=== PATIENT | male | born 1970 | race Caucasian/White ===

== ENCOUNTER → 2017-10-18 | Outpatient (REF) | payer OTHER | LOC: ZZSENDIN 13:04 | PROVIDERS: ATTEND Physician Assistant Medical | DX: R10.817 Generalized abdominal tenderness (principal) | CPT/HCPCS: 82150; 83690 ==

== ENCOUNTER → 2017-10-19 | Outpatient (CLI) | payer OTHER ==
--- NOTE | 2017-10-19 17:31 | RADIOLOGY IMAGING REPORT ---
FACILITY: [facility] [place] PATIENT NAME: Lucian Blair : 1970 MR: [id number] V: [id number] EXAM DATE: ORDERING PHYSICIAN: RUBIA KAM TECHNOLOGIST: Location: [facility] - [place], [place] Patient: Lucian Blair : 1970 Visit/Account:[id number] Date of Sevice: 10/19/2017 GALLBLADDER HISTORY: Right upper quadrant pain COMPARISON: None. FINDINGS: Gallbladder: Gallbladder wall is borderline thickened at 2.9 mm. There is no demonstration of gallst ones or positive Doran sign Liver: Increased echogenicity throughout liver which can be seen with fatty infiltration or other inf iltrative process Common duct: Normal, 3.6 mm diameter. Pancreas: Partially obscured by bowel, visualized aspects unremarkable. Right kidney: Unremarkable measuring 9.7 cm in length Upper abdominal aorta and IVC: Patent. Ascites: None visualized. IMPRESSION: Increased echogenicity throughout liver which can be seen with fatty infiltration or other infiltrati ve process The gallbladder wall is borderline thickened although there is no demonstration of gallbladder stones or sludge and no evidence of a positive. Doran sign Report Dictated By: Danielle Quiñones MD at 10/19/2017 5:23 PM Report E-Signed By: Danielle Quiñones MD at 10/19/2017 5:26 PM WSN:[email or web address]
== END ==
LOC: US 06:58
PROVIDERS: ATTEND Physician Assistant Medical
DX: K76.0 Fatty (change of) liver, not elsewhere classified (principal)
CPT/HCPCS: 76705

== ENCOUNTER → 2017-10-25 | Outpatient (CLI) | payer OTHER ==
--- NOTE | 2017-10-25 14:32 | RADIOLOGY IMAGING REPORT ---
FACILITY: [facility] PATIENT NAME: Lucian Blair : 1970 MR: [id number] V: [id number] EXAM DATE: ORDERING PHYSICIAN: RUBIA KAM TECHNOLOGIST: Location: [facility] Patient: Lucian Blair : 1970 Visit/Account:[id number] Date of Sevice: 10/25/2017 Exam type: GASTRIC EMPTYING History: Abdomen pain/diabetic Comparison: None. Findings: The patient received an oral meal of 2.1 mCi of technetium 99m sulfur colloid in 4 ounces of egg beat ers with two slices of toast in 4 ounces of water consumed within 10 minutes. Anterior and posterior images were obtained over the upper abdomen immediately following the medial, at one hour, two hours , three hours and four hours. Time/activity curve was generated with the region of interest over the stomach. The T1 half gastric emptying time was 71 minutes.. At 238 minutes 100% of gastric contents had empti ed IMPRESSION: 1. T1 half gastric emptying time of 71 minutes Report Dictated By: Danielle Quiñones MD at 10/25/2017 2:25 PM Report E-Signed By: Danielle Quiñones MD at 10/25/2017 2:28 PM WSN:[email or web address]
== END ==
LOC: NUC 01:38
PROVIDERS: ATTEND Physician Assistant Medical
DX: R10.817 Generalized abdominal tenderness (principal)
CPT/HCPCS: 78264; A9541